=== PATIENT | male | born 1960 | race Hispanic/Latino ===

== ENCOUNTER 2023-03-31 08:41 | Observation (INO) | payer BC ==
[2023-03-30 12:16] LABS: BASOPHILS # (AUTO) 0.04 K/uL (0.00-0.20); BASOPHILS % (AUTO) 0.5 % (0.0-5.0); EOSINOPHILS # (AUTO) 0.26 K/uL (0.00-0.70); EOSINOPHILS % (AUTO) 3.1 % (0.0-8.0); HEMATOCRIT 43.5 % (42-54); IMMATURE GRANULOCYTE ABSOLUTE 0.02 K/uL (0-1); LYMPHOCYTES # (AUTO) 2.5 K/uL (1.0-4.8); LYMPHOCYTES % (AUTO) 29.2 % (21.0-51.0); MEAN CORPUSCULAR HEMOGLOBIN 31.5 pg (27.0-33.0); MEAN CORPUSCULAR HGB CONC 34.7 g/dL (32.0-36.0); MEAN CORPUSCULAR VOLUME 90.8 fL (79-99); MONOCYTES # (AUTO) 0.6 K/uL (0.1-1.0); MONOCYTES % (AUTO) 6.9 % (3.0-13.0); NEUTROPHILS # (AUTO) 5.1 K/uL (1.8-7.7); NEUTROPHILS % (AUTO) 60.1 % (40.0-77.0); PLATELET COUNT (AUTO) 287 K/uL (130-400); RED BLOOD CELL COUNT(AUTO) 4.79 MIL/uL (4.50-6.20); RED CELL DISTRIBUTION WIDTH 12.1 % (11.0-15.5); WHITE BLOOD COUNT (AUTO) 8.5 K/uL (4.8-10.8)
[2023-03-30 12:27] LABS: INR 0.98 (0.85-1.15); PROTHROMBIN TIME 11.4 SEC (9.6-11.6)
[2023-03-30 12:28] LABS: PARTIAL THROMBOPLASTIN TIME 28.8 SEC (26.3-35.5)
[2023-03-30 12:35] LABS: POTASSIUM 4.7 mmol/L (3.5-5.1)
[2023-03-30 13:00] VITALS: BP 135/60; PULSE 56; RESP 18
[~2023-03-31] VITALS: Ht 177.8 cm; Wt 104.9 kg
[2023-03-31] VITALS (26 sets, daily range): BP systolic 98–144; BP diastolic 35–78; PULSE 48–90; RESP 10–18; O2SAT 100
[~2023-03-31 08:41] MED LIST: AMLO-257 PO; LOSA100T59 PO; ROSU10TA28 PO
[2023-03-31] MEDS ORDERED: CEFAZOLIN SODIUM 2 GM VIAL ONE (09:00)
[2023-03-31] MEDS ORDERED: LACTATED RINGERS 1000ML 1,000 ML IV ONE (09:00)
[2023-03-31] MEDS ORDERED: HYDROMORPHONE 1 MG INJ ONE (12:06)
[2023-03-31] MEDS ORDERED: FAMOTIDINE 20MG VIAL IV ONE (12:07)
[2023-03-31] MEDS ORDERED: TRANEXAMIC ACID 1000MG/10ML ONE (12:37)
[2023-03-31] MEDS ORDERED: LIDOCAINE PF 100MG/5ML (2%) SYRINGE 5ML ONE (12:52)
[2023-03-31] MEDS ORDERED: PROPOFOL 10 MG/ML 20ML VIAL IV ONE (12:52)
[2023-03-31] MEDS ORDERED: GLYCOPYRROLATE 1 MG/5 ML SYRINGE ONE ×2 (12:53→16:27)
[2023-03-31] MEDS ORDERED: FENTANYL CITRATE PF 50 MCG/1 ML 2ML VIAL ONE ×2 (12:53→14:01)
[2023-03-31] MEDS ORDERED: MIDAZOLAM HCL 1 MG/ML 2ML VIAL ONE (12:53)
[2023-03-31] MEDS ORDERED: PHENYLEPHRINE HCL 10 MG/ML 1ML VIAL IV ONE (12:55)
[2023-03-31] MEDS ORDERED: ROPIVACAINE 0.5% 5MG/ML 30ML IJ ONE (13:01)
[2023-03-31] MEDS ORDERED: ROCURONIUM 10MG/1ML SYR 10 MG/ML ML ONE ×2 (13:21→15:15)
[2023-03-31] MEDS ORDERED: POTASSIUM CHLORIDE 10% ELIXIR 20 MEQ/15 ML UDCUP PO PRN (13:30)
[2023-03-31] MEDS ORDERED: ONDANSETRON 4MG INJ IVP PRN (13:30)
[2023-03-31] MEDS ORDERED: MORPHINE 4 MG SYG IVP PRN (13:30)
[2023-03-31] MEDS ORDERED: HYDROCODONE/ACETAMINOPHEN 5/325 MG TAB PO PRN (13:30)
[2023-03-31] MEDS ORDERED: HYDROCODONE/ACETAMINOPHEN 10/325 MG TAB PO PRN (13:30)
[2023-03-31] MEDS ORDERED: KCL 20 MEQ ERTAB PO PRN (13:30)
[2023-03-31] MEDS ORDERED: POTASSIUM CHLORIDE 20MEQ/100ML 100 ML IV PRN (13:30)
[2023-03-31] MEDS ORDERED: EPHEDRINE SULFATE 50 MG/ML AMPULE ONE (15:01)
[2023-03-31] MEDS ORDERED: NEOSTIGMINE 5MG/5ML SYR IV ONE (16:27)
[2023-03-31] MEDS ORDERED: MEPERIDINE-PF 25 MG/ML SYG ONE ×2 (16:59→17:21)
[2023-03-31] MEDS ORDERED: GLYCOPYRROLATE 0.2 MG/ML 5 ML VIAL ONE (17:13)
[2023-03-31] MEDS: ACETAMINOPHEN 1,000 MG/100 ML VIAL IV SCH ×2 (17:34→21:36)
[2023-03-31] MEDS: IBUPROFEN 800MG + NS 250ML IV SCH (18:22)
[2023-03-31] MEDS: TRAMADOL HCL 50 MG TABLET PO SCH ×2 (21:36→23:38)
[2023-03-31] MEDS: FAMOTIDINE 20MG TAB PO SCH (21:36)
[2023-03-31] MEDS: CEFAZOLIN SODIUM 1 GM VIAL IVPB SCH (21:37)
[2023-03-31] MEDS: 0.9%NACL 1000ML 1,000 ML IV SCH ×2 (21:47→23:30)
[2023-04-01] MEDS: IBUPROFEN 800MG + NS 250ML IV SCH ×2 (00:10→09:09)
[2023-04-01 00:45] VITALS: BP 127/63; PULSE 82
[2023-04-01] MEDS: ACETAMINOPHEN 1,000 MG/100 ML VIAL IV SCH (01:30)
[2023-04-01 04:00] VITALS: BP 142/75; PULSE 70; RESP 18
[2023-04-01] MEDS: CEFAZOLIN SODIUM 1 GM VIAL IVPB SCH (04:46)
[2023-04-01 04:51] LABS: HEMATOCRIT 36.7 % (42-54); MEAN CORPUSCULAR HEMOGLOBIN 31.6 pg (27.0-33.0); MEAN CORPUSCULAR HGB CONC 34.3 g/dL (32.0-36.0); RED BLOOD CELL COUNT(AUTO) 3.99 MIL/uL (4.50-6.20); WHITE BLOOD COUNT (AUTO) 16.8 K/uL (4.8-10.8)
[2023-04-01 04:57] LABS: CREATININE 1.1 mg/dL (0.5-1.5); POTASSIUM 4.3 mmol/L (3.5-5.1)
[2023-04-01] MEDS: TRAMADOL HCL 50 MG TABLET PO SCH ×2 (05:53→11:21)
[2023-04-01 07:57] VITALS: BP 139/69; PULSE 76; RESP 18
[2023-04-01] MEDS ORDERED: AMLODIPINE 5 MG TAB PO SCH (09:00)
[2023-04-01] MEDS ORDERED: POLYETHYLENE GLYCOL 3350 17 GM POWD.PACK PO SCH (09:00)
[2023-04-01] MEDS ORDERED: LOSARTAN 100 MG TABLET PO SCH (09:00)
[2023-04-01] MEDS ORDERED: ENOXAPARIN SODIUM 30 MG/0.3 ML SQ SCH (09:00)
[2023-04-01] MEDS: FAMOTIDINE 20MG TAB PO SCH (09:07)
[2023-04-01] MEDS: 0.9%NACL 1000ML 1,000 ML IV SCH (09:30)
[2023-04-01 10:19] VITALS: O2SAT 100
[2023-04-01 11:13] VITALS: BP 127/69; PULSE 70; RESP 19
[2023-04-03] MEDS ORDERED: BISACODYL 10 MG SUPP.RECT RC PRN (13:30)
== END 2023-04-01 16:15 | disposition home or self-care (01) ==
LOC: DAH 08:41 → DAHIP 08:42 → DAH 08:42 → 4CH 17:00
PROVIDERS: ADMIT Orthopaedic Surgery; ATTEND Orthopaedic Surgery
DX: M16.11 Unilateral primary osteoarthritis, right hip (principal); Z20.822 Contact with and (suspected) exposure to COVID-19; G89.18 Other acute postprocedural pain; I10 Essential (primary) hypertension; E78.5 Hyperlipidemia, unspecified; Z79.899 Other long term (current) drug therapy
CPT/HCPCS: 80048 ×2; 85025; 85610; 85730; 87426; 36415 ×2; 87641; 64447; 27130; 96365; 96366 ×2; 96375; 96367; 73503; 96372; 85027; 97161; 97039; 97116 ×2; A6260; C1776 ×4; G0378 ×22; A4663; J7040; J7120 ×2; A4606; J3490 ×6; J3010 ×2; J0690 ×3; J1170; J2710; J2001; J2250; J2704; J2405; J2175 ×2; J2795; J2371; J1741 ×4; A4649 ×3; G0168; A6212; A5120; A4215; A4223; A4222; A4221; A4600; J1650; C1736